=== PATIENT | male | born 1985 | race Caucasian/White ===

== ENCOUNTER 2024-08-22 02:00 | Inpatient (IN) | payer MEDICAID ==
[2024-08-22] VITALS (8 sets, daily range): BP systolic 112–125; BP diastolic 71–84; PULSE 98–115; RESP 17–23; TEMP 36.114–36.89184; O2SAT 93–100
[~2024-08-22] VITALS: Ht 142.2 cm; Wt 55.3 kg
[2024-08-22 02:36] LABS: BASOPHILS % 0.2 % (0.0-2.0); EOSINOPHILS % 0.6 % (0.0-5.0); HEMATOCRIT. 36.4 % (42.0-52.0); HEMOGLOBIN. 12.4 g/dL (14.0-18.0); LYMPHOCYTES % 34.4 % (20.0-50.0); MEAN CORPUSCULAR HEMOGLOBIN 30.6 pg (28.0-32.0); MEAN CORPUSCULAR HGB CONC 34.1 g/dL (31.0-37.0); MEAN CORPUSCULAR VOLUME 89.7 fL (80.0-94.0); MEAN PLATELET VOLUME 6.9 fl (7.4-10.4); MONOCYTES % 12.1 % (2.0-8.0); NEUTROPHILS % 52.7 % (40.0-76.0); PLATELET 274 x1000/uL (130-400); RED BLOOD CELL COUNT 4.07 mill/uL (4.7-6.1); RED CELL DISTRIBUTION WIDTH 14.7 % (11.6-14.6); WHITE BLOOD COUNT 5.7 x1000/uL (4.5-11.0)
[2024-08-22 02:41] LABS: CHLORIDE 104 mEq/L (98-107); SODIUM 140 mEq/L (136-145)
[2024-08-22 02:42] LABS: CALCIUM 9.1 mg/dL (8.7-10.4); CARBON DIOXIDE 26 mEq/L (21-32)
[2024-08-22 02:43] LABS: PROTHROMBIN TIME 10.8 sec (9.6-11.0)
[2024-08-22 02:47] LABS: CREATININE 0.7 mg/dL (0.6-1.3); GLUCOSE 112 mg/dL (70-105); UREA NITROGEN BLOOD 12 mg/dL (9-23)
[2024-08-22 02:48] LABS: ETHANOL BLOOD 294 mg/dL (<10); LACTIC ACID 2.6 mmol/L (0.4-2.0)
[2024-08-22 02:49] LABS: ACETAMINOPHEN < 2 ug/mL (10-30); AMMONIA 45 uMol/L (<32); CREATINE KINASE 160 IU/L (46-171)
[2024-08-22] MEDS: SODIUM CHLORIDE 0.9% 1,000 ML IV NR (02:56)
[2024-08-22] MEDS: LORAZEPAM 2MG/ML INJ IV STA (03:10)
[2024-08-22] MEDS: MAGNESIUM 2 G PREMIX 50 ML IV ONE (03:10)
[2024-08-22] MEDS: FOLIC ACID 1 MG, THIAMINE HCL 100 MG, MVI, ADULT NO.1 10 ML in DEXTROSE 5% WATER 1,000 ML IV ONE (03:10)
[2024-08-22 03:30] LABS: POTASSIUM 2.5 mEq/L (3.5-5.1); TROPONIN I HIGH SENSITIVITY < 4 ng/L (3.0-53)
[2024-08-22 04:42] LABS: TROPONIN I HIGH SENSITIVITY < 4 ng/L (3.0-53)
[2024-08-22 04:57] LABS: BG BASE EXCESS -2.5 mmol/L (-2.0-3.0); BG CARBOXYHEMOGLOBIN 1.1 % (0.5-1.5); BG FRACTION INSPIRED OXYGEN 28; BG HCO3 ACT 23.3 mmol/L (21.0-28.0); BG METHEMOGLOBIN 0.2 % (0.5-1.5); BG OXYHEMOGLOBIN 95.7 % (94.0-98.0); BG PCO2 43.7 mmHg (35.0-48.0); BG PH 7.344 (7.350-7.450); BG PO2 104.3 mmHg (83.0-108.0); BG SAMPLE SITE RIGHT RADIAL; BG VENT MODE NASAL CANNULA
[2024-08-22] MEDS: KCL 20MEQ/100ML PREMIX 100 ML IV SCH (05:31)
[2024-08-22] MEDS ORDERED: ACETAMINOPHEN 325MG TABLET PO PRN ×2 (12:00)
[2024-08-22] MEDS ORDERED: ONDANSETRON HCL 4MG/2ML INJ IV PRN (12:00)
[2024-08-22] MEDS ORDERED: DOCUSATE SODIUM 100MG CAPSULE PO PRN (12:00)
[2024-08-22] MEDS ORDERED: CLONIDINE 0.1MG TABLET PO PRN (12:00)
[2024-08-22] MEDS ORDERED: IPRATROPIUM/ALBUTEROL 0.5-3(2.5)MG/3ML NEB HHN PRN (12:00)
[2024-08-22] MEDS ORDERED: BUPR75TA8 MT (15:28)
[2024-08-22] MEDS ORDERED: VALP250S22 GT (15:28)
[2024-08-22] MEDS ORDERED: QUET25TA MT (15:28)
[2024-08-22] MEDS: LACTULOSE 20G/30ML UDC PO SCH (16:03)
[2024-08-22 16:50] LABS: CHLORIDE 106 mEq/L (98-107); POTASSIUM 3.5 mEq/L (3.5-5.1); SODIUM 141 mEq/L (136-145)
[2024-08-22 16:51] LABS: CALCIUM 8.2 mg/dL (8.7-10.4); CARBON DIOXIDE 25 mEq/L (21-32)
[2024-08-22 16:54] LABS: PROTHROMBIN TIME 10.8 sec (9.6-11.0)
[2024-08-22 16:56] LABS: CREATININE 0.6 mg/dL (0.6-1.3); GLUCOSE 88 mg/dL (70-105); UREA NITROGEN BLOOD 7 mg/dL (9-23)
[2024-08-22 16:57] LABS: CREATINE KINASE MB FRACTION 7.8 ng/mL (0.5-3.6)
[2024-08-22 16:58] LABS: ALANINE AMINOTRANSFERASE 12 IU/L (10-49); ALBUMIN 3.3 g/dL (3.2-4.8); ASPARTATE AMINOTRANSFERASE 18 IU/L (<34); BILIRUBIN TOTAL 0.2 mg/dL (0.1-1.0); CREATINE KINASE 147 IU/L (46-171); PHOSPHORUS 2.9 mg/dL (2.5-4.9)
[2024-08-22 17:02] LABS: BILIRUBIN DIRECT < 0.1 mg/dL (<=3.0)
[2024-08-22 17:44] LABS: TROPONIN I HIGH SENSITIVITY < 4 ng/L (3.0-53)
[2024-08-22 17:51] LABS: CLARITY URINE CLEAR (CLEAR); COLOR URINE YELLOW (YELLOW); GLUCOSE URINE NEGATIVE (NEGATIVE); KETONES URINE NEGATIVE (NEGATIVE); LEUKOCYTE ESTERASE URINE NEGATIVE (NEGATIVE); NITRITE URINE NEGATIVE (NEGATIVE); OCCULT BLOOD URINE NEGATIVE (NEGATIVE); PROTEIN URINE NEGATIVE (NEGATIVE); SPECIFIC GRAVITY URINE 1.015 (1.005-1.030)
[2024-08-23] MEDS ORDERED: FOLIC ACID 1 MG, THIAMINE HCL 100 MG, MVI, ADULT NO.1 10 ML in DEXTROSE 5% WATER 1,000 ML IV ONE (06:00)
[2024-08-23 11:32] LABS: *AMPHETAMINES SCREEN URINE PRESUMPTIVE POSITIVE (NEGATIVE); *BARBITURATES SCREEN URINE NEGATIVE (NEGATIVE); *BENZODIAZEPINES SCREEN URINE NEGATIVE (NEGATIVE); *COCAINE SCREEN URINE NEGATIVE (NEGATIVE); METHADONE URINE SCREEN NEGATIVE (NEGATIVE); OPIATES URINE SCREEN NEGATIVE (NEGATIVE)
[2024-08-23 11:33] LABS: CANNABINOID URINE SCREEN PRESUMPTIVE POSITIVE (NEGATIVE); ECSTASY MDMA SCREEN URINE NEGATIVE (NEGATIVE); PHENCYCLIDINE URINE SCREEN NEGATIVE (NEGATIVE)
== END 2024-08-22 17:00 | disposition left against medical advice (07) | DRG 52 ==
LOC: ER 02:00 → EDBEDREQ 04:28 → EDBEDREQSVC 08:33 → 5EST 10:10 → EDBD 10:10
PROVIDERS: ADMIT Internal Medicine; ATTEND Internal Medicine
DX: G92.9 Unspecified toxic encephalopathy (principal); K81.0 Acute cholecystitis; F10.129 Alcohol abuse with intoxication, unspecified; F17.210 Nicotine dependence, cigarettes, uncomplicated; Z53.29 Procedure and treatment not carried out because of patient's decision for other reasons; Z88.8 Allergy status to other drugs, medicaments and biological substances; F19.10 Other psychoactive substance abuse, uncomplicated
CPT/HCPCS: 36415; 36600; 71045; 76700; 80048; 80076; 80305; 80307; 80320; 80329; 81003; 82140; 82375; 82550; 82553; 82805; 82962; 83605; 83735; 84100; 84145; 84484; 85025; 86850; 86900; 99285; J2060; J3411; J3475; J3480; J3490; J7070; G0480